=== PATIENT | female | born 2000 | race African-American/Black ===

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

== ENCOUNTER 2019-07-14 13:15 | Emergency (ER) | payer OTHER, SELFPAY | END 2019-07-14 14:30 | disposition home or self-care (01) | LOC: MADERS 13:15 | DX: K04.7 Periapical abscess without sinus (principal) | CPT/HCPCS: 99283 ==

== ENCOUNTER 2020-06-17 09:51 | Emergency (ER) | payer SELFPAY | END 2020-06-17 10:50 | disposition short-term general hospital (02) | LOC: MADERS 09:51 | DX: O63.9 Long labor, unspecified (principal); Z3A.34 34 weeks gestation of pregnancy | CPT/HCPCS: 99284 ==

== ENCOUNTER 2022-01-17 17:30 | Emergency (ER) | payer MEDICAID ==
[2022-01-17 18:23] LABS: Bilirubin Negative (Negative); Blood, Urine Negative (Negative); Glucose, Urine (Dipstick) Negative (Negative); Ketone, Urine 40 mg/dL (Negative); Leukocyte Moderate (Negative); Nitrite Negative (Negative); Protein, Urine (Dipstick) 30 mg/dL (Neg-Trace)
[2022-01-17 18:27] LABS: Clarity Slightly Cloudy (Clear); RBC/HPF 0-3 HPF (0-3); Specific Gravity, Urine 1.035 (1.002-1.036)
[2022-01-17 18:28] LABS: Bacteria/HPF 3+ HPF (None Seen); WBC/HPF Greater Than 50 HPF (0-3)
[2022-01-17] MEDS ORDERED: Azithromycin 250 MG TAB ONE (18:50)
[2022-01-17] MEDS ORDERED: cefTRIAXone\\ROCEPHIN 500 MG VIAL ONE (18:50)
[2022-01-17] MEDS ORDERED: Sterile Water 10 ML ONE (18:50)
== END 2022-01-17 19:05 | disposition home or self-care (01) ==
LOC: MADERS 17:30
DX: O23.42 Unspecified infection of urinary tract in pregnancy, second trimester (principal); N39.0 Urinary tract infection, site not specified; Z3A.16 16 weeks gestation of pregnancy
CPT/HCPCS: 81003; 81015; 87086; 96372; J0696

== ENCOUNTER 2022-05-14 01:14 | Emergency (ER) | payer MEDICAID | END 2022-05-14 02:00 | disposition home or self-care (01) | LOC: MADERS 01:14 | DX: O47.1 False labor at or after 37 completed weeks of gestation (principal); Z3A.38 38 weeks gestation of pregnancy | CPT/HCPCS: 99283 ==